=== PATIENT | female | born 1970 | race Two or more races ===

== ENCOUNTER 2024-04-10 15:48 | Outpatient (REF) | payer OTHER, SELFPAY ==
[2024-04-10 18:30] LABS: Erythrocyte Sedimentation Rate 16 MM/HR (0-20)
== END 2024-04-10 15:49 | disposition home or self-care (01) ==
LOC: HO.LAB 15:48
PROVIDERS: PCP Internal Medicine; Visit Provider Registered Nurse
DX: G44.209 Tension-type headache, unspecified, not intractable (principal)
CPT/HCPCS: 36415; 85652; 86140

== ENCOUNTER 2024-12-27 07:46 | Outpatient (REF) | payer OTHER, SELFPAY ==
--- OUTSIDE RECORDS SUMMARY | 2024-12-27 07:48 | XMS_ITS | Data Portability ---
Author Organization [place] - [facility], Allergy Address [address] [place] [id number] Assessment Encounter Date Assessment Date Assessment LastModified by Organization Details LastModified Time 04/17/2024 04/17/2024 54 year-old female with seasonal allergies presents for evaluation of ear pressure and left sided tinnitus. Otologic exam demonstrates TMs are intact with moderate retraction. No effusion was appreciated today. Audiogram today demonstrates normal hearing bilaterally with moderate type C tympanometry in left ear. Discussed switching from Loratadine to Claritin-D for 2 weeks and switching from Flonase to Afrin for 3 days. Recommend continuing her daily allergy regimen as prescribed after. She was prescribed Amoxicillin by her primary care provider for sinus congestion and will continue this regimen. Reviewed masking techniques, limiting caffeine and salt, and wearing hearing protection in loud environments for tinnitus management and prevention. As her symptoms are improving, the patient agrees to observation. She will follow up as needed if her symptoms persist longer than 3 months or worsen. Will consider tinnitus retraining therapy if symptom becomes bothersome. [email or web address] Not available 04/17/2024 12:33:11 Plan of Treatment Reminders Order Date Submit Date Provider Last Modified By Organization Details Last Modified Time Details Appointments None record ed. Lab None record ed. Referral None record ed. Procedures None record ed. Surgeries None record ed. Imaging None record ed. Medication Orders None record ed. Patient TargetsNo targets recorded. Patient InstructionsNo instructions recorded. Reason for Referral None Reported. Results Created Date Observation Date Name Description Value Unit Range Abnormal Flag Note LastModifiedBy Organization Detail LastModifiedTime 04/18/20 24 audio gram No observ ation record ed. [email or web address] Not Available 2023 10:07:39 Result Notes None recorded. Problems Name Problem SNOMED Code Status Onset Date Resolution Date Notes Provider Name and Address Organization Details Recorded Time Abnormal auditory perception 65950927 Active 2023 Merary sherman [facility] 11:10:52 Bilateral disorder of Eustachian tubes 2918240228427 107 Active 2023 JOY DOWLING PA-C [address] [place] [address], [phone], [facility] 12:31:15 Tinnitus of left ear 9811954028519 Active 2023 JOY DOWLING PA-C [address] [place] [address], [phone], [facility] 12:31:24 Problem Notes None recorded. Procedures Surgical History Date Name Laterality Status Provider Name and Address Organization Details Recorded Time 04/17/2024 Comp Audio with Tymps - 86878 & 14754 completed Merary Heredia [place] [facility] 04/17/2024 11:10:39 Imaging Results None recorded. Procedure Notes None recorded. Medical Equipment None Reported. Vitals Date Recorded Body height Body mass index (BMI) Body weight Provider Name and Address Organization Details Last Updated DateTime 04/17/2024 149.86 cm 37 kg/m2 11093.4 g Vince Sanchez [facility] 04/17/2024 11:16:54 Social History None recorded. Functional Status None recorded. Mental Status None recorded. Family History Nothing Reported. Medical History No medical history recorded. Gynecological HistoryNo gynecological history recorded. Obstetrics History GPAL:G 0 P 0 0 0 0 Past Encounters Encounter ID Performer Location Encounter Start Date Encounter Closed Date Diagnosis/Indication Diagnosis SNOMED-CT Code Diagnosis ICD10 Code Diagnosis Note [id number] ANA CALI PA-C [facility] [address] [place] [address] 04/17/2024 10:38:52 04/17/2024 12:43:08 Abnormal auditory perception 54391456 H93.299 Audiologic al evaluation results: Right ear: Normal hearing with excellent word recognitio n. Left ear: Normal hearing with excellent word recognitio n. Tympanomet ry: Right Ear:Type A Left Ear:Type C Bilateral disorder of Eustachian tubes 0712578083 687091 H69.93 Tinnitus of left ear 061 [id number] 106 H93.12 Health Concerns Section Related Observation LastModified by Organization Detai ls LastModified Time None Recorded Concern Status LastModified by Organization Details LastModified Time None Recorded Advance Directives Directive None Recorded Payers Insurance Date Sequence Insurance Name Policy Number Policy Perez Covered Member ID Perez Member ID Guarantor Name 05/02/2024 1 [facility] (MEDICAID HMO) JIMMY Sotelo [id number] Hattie Sotelo Notes Date Note Type Note Provider Name and Address Organization Details Recorded Time 04/17/2024 text/html 54 year-old noe reyna with seasonal allergies presents for ear pressure, left worse than right. Reports bilateral ear pressure started in September during a sinus infection. At that time she experienced high-pitched tinnitus and noise that sounded like the ocean. This resolved acutely, and she now hears occasional low-pitched ringing in left ear. In November, she reports an episode of worse left ear pressure a couple days after plane ride, felt like ice around her ear and that she might pass out. Resolved next day. Occasional throbbing otalgia. Denies otorrhea, changes to hearing, or room-spinning dizziness. History of childhood ear infections. No prior ear surgeries. No history of loud noise exposure. Qtip use. She uses Loratadine and Flonase daily. Uses does saline rinses every other day. Started amoxicillin yesterday for sinus infection. She is masking her occasional tinnitus with noise machine at night. She wears hearing protection as needed. Denies caffeine or high-salt diet. EUGENE PERSAUD MD [address] [place] [address], [phone], [place] - [facility] 04/17/2024 16:34:44 OBGyn Episode No OBEpisode recorded.
== END 2024-12-27 07:47 | disposition home or self-care (01) ==
LOC: HO.MRI 07:46
PROVIDERS: Visit Provider Registered Nurse
DX: Z13.89 Encounter for screening for other disorder (principal)

== ENCOUNTER → 2025-01-04 07:10 | Outpatient (BNV) | payer OTHER, SELFPAY | PROVIDERS: PCP Internal Medicine; Visit Provider Radiology Diagnostic Radiology | DX: M99.61 Osseous and subluxation stenosis of intervertebral foramina of cervical region (principal); D18.09 Hemangioma of other sites | CPT/HCPCS: 72141 ==

== ENCOUNTER 2025-01-04 07:13 | Outpatient (REF) | payer OTHER, SELFPAY ==
--- NOTE | ~2025-01-04 | MR_ITS ---
EXAMINATION: MR CERVICAL SPINE WITHOUT CONTRAST CLINICAL INFORMATION: Cervical disc disease. COMPARISON: None available. TECHNIQUE: MRI of the cervical spine was obtained using routine sequences without contrast. FINDINGS: Craniocervical junction is intact. No bone marrow STIR signal abnormality. There is a focal, less than 1 cm hyperintense T2 STIR slightly intrinsic hyperintense T1 bone lesion at the left vertebral body of C7. There is reverse curvature apex at C5. There is a grade retrolisthesis C5-6. There is a grade 1 anterolisthesis C4-5 and C6-7 levels. The cervical spinal cord signal is normal. C2-3: No disc herniation. No cord compression. No neuroforamina stenosis. C3-4: No disc herniation. No cord compression. No neuroforamina stenosis. C4-5: Broad-based disc osteophyte compresses formation. No cord compression. Left neuroforamina narrowing on a degenerative basis. C5-6: Broad-based disc osteophyte complex formation abutting the cord. No cord compression. Bilateral neuroforamina narrowing on a degenerative basis affecting mostly the left side C6-7: Broad-based disc osteophyte complex formation. No cord compression. No neuroforamina stenosis. C7-T1: No disc herniation. No neuroforamina stenosis. No prevertebral compartment hematoma, mass or fluid collection. Flow-void signal within the main vessels is normal. Codominant vertebral arteries. There is normal position of the cerebellar tonsils. MR/MR cervical spine wo con IMPRESSION: Reverse curvature apex at C5 with a mild [place] deformity. Multilevel cervical spondylosis resulting in grade 1 retrolisthesis C5-6 without cord compression, cord edema and or myelopathy. Left neuroforamina narrowing C4-5 and bilateral neuroforamina narrowing C5-6 on a degenerative basis. Intraosseous hemangioma, C7. Electronically signed by: Aroldo Bledsoe MD 01/04/2025 08:01 AM EDT
== END 2025-01-04 07:14 | disposition home or self-care (01) ==
LOC: HO.MRI 07:13
PROVIDERS: PCP Internal Medicine; Visit Provider Registered Nurse
DX: M50.90 Cervical disc disorder, unspecified, unspecified cervical region (principal)
CPT/HCPCS: 72141

== ENCOUNTER 2025-03-06 13:08 | Outpatient (AMB) | payer OTHER, SELFPAY ==
--- NOTE | 2025-03-06 13:21 | A.OFFVIS_ITS ---
Intake Visit Reasons: 3m Cerv Allergies codeine Allergy (Unknown, Verified 03/06/25 13:28) Unknown Medication List - Last Reconciled 03/06/25 by Yesenia Wilson CNP famotidine 20 mg PO BID loratadine 10 mg PO DAILY omeprazole 40 mg PO ONCE simvastatin 10 mg PO BEDTIME HPI Comments Details: She was doing okay. Headaches were okay. When she wore her hair pulled back tight she got some off balance feeling like she was being pulled backward. No falls. She was still having some neck pain and stiffness. She was waking with numbness and tingling down left arm into fingers a few times a week. She had some weakness to left hand. Was having some tightness to back of head, especially if she wore her hair up. Some dizziness and feeling off balance if she got up too fast. Neck pain. Waking up some numbness and tingling down left arm into fingers, also happens after driving for period of time. She stopped taking cyclobenzaprine as it made her feel nauseous. Saw ENT and was treated for sinus infection with amoxicillin. She was also advised to take Afrin x3 days and Claritin D x2 weeks which helped with congest ion. Headaches subsided after this so she stopped taking amitriptyline. Her mother passed in 01/2024. Previously, headaches occurred often with neck pain after sleeping in uncomfortable position. Chronic neck pain and stiffness, occasional numbness/tingling down LUE. Dizziness at times if she changes positions quickly. Hx of degenerative cervical disc disease. In 2019, she was waking with headache daily. Some sinus problems in the past. [facility] Medical History (Updated 03/06/25 @ 13:24 by Yesenia Wilson CNP) Cervical disc disease Tension headache Review of Systems Const Denies chills, Denies daytime sleepiness, Reports difficulty sleeping, Denies fatigue, Denies fever(s), Denies frequent falls, Reports headache(s), Denies increased appetite, Denies poor appetite, Denies snoring, Denies weakness, Denies weight gain and Denies weight loss Eyes Denies loss of vision ENT Denies vertigo, Reports dizziness, Reports headache(s) and Reports neck pain Card Denies chest pain at rest, Denies chest pain with activity, Denies syncope, Denies leg edema, Denies palpitations, Denies dyspnea and Denies dyspnea on exertion Resp Denies cough, Denies dyspnea, Denies dyspnea on exertion and Denies snoring GI Denies abdominal pain, Denies constipation, Denies heartburn, Denies diarrhea and Denies nausea Denies urinary frequency, Denies urinary incontinence and Denies urinary urgency Musc Denies abnormal gait, Denies back pain, Denies myalgias, Denies arthralgias, Reports neck pain, Reports numbness and Reports tingling Neuro Denies abnormal gait, Denies vertigo, Reports dizziness, Denies syncope, Denies frequent falls, Reports headache(s), Denies lack of coordination, Denies loss of vision, Denies memory loss, Reports numbness, Denies Other visual disturbances, Denies restless legs, Denies seizure-like activity, Reports tingling, Denies paresthesias, Denies tremor(s) and Denies weakness Psych Denies anxiety, Denies depression, Denies auditory hallucinations, Denies memory loss and Denies visual hallucinations Endo Denies fatigue and Denies palpitations Physical Exam Const Other: General Appearance:? normal, in no acute distress. Heart:? S1, S2 normal, no murmurs. Lungs:? clear anteriorly and posteriorly. Musculoskeletal:? normal. Extremities:? no edema. Psych:? alert, oriented, cognitive function intact, cooperative with exam. Neuro Other: Abnormal Neurological Findings:?Mild generalized weakness LUE. Tense paraspinal muscles Mental Status: alert and oriented X 3. Normal attention, orientation, memory, and affect. Cranial Nerves: Pupils are equal, round, and reactive to light. External ocular muscles are intact. Visual perez are full, no ptosis. Face is symmetrical, no facial weakness or droop. Facial sensations are normal. Tongue protrudes in midline. Palate elevates symmetrically. Shoulder shrugging is normal Motor Examination: As above, otherwise normal muscle tone, bulk and strength. No atrophy or fasciculations. No drift of the extended upper extremities. DTR 2+. Plantars are flexor. Sensory Exam: Normal light touch, temperature, pinprick, vibration, and joint- position sensations. Rhomberg sign is absent. Coordination: No ataxia. No titubation. Epledx-wd-fckx, dtgl-wlss-ifoh test, and rapid alternating movements were normal. Gait Exam: Within normal limits. Cerebellar Signs: Ezrekf-xq-vfad and sbgl-zr-qmoa is normal. No dysdiadochokinesia. Extrapyramidal System: No tremor, rigidity with normal facial expressions. No bradykinesia. No bradyphrenia. Normal arm swing and posture. No propulsion or retropulsion. Speech: Normal. No dysphasia or dysarthria. Results Reviewed Results Reviewed: [address] [address] Magnetic Resonance Report Signed Patient: Hattie Sotelo MR#: [id number] : 1970 Acct:[id number] Age/Sex: 54 / F ADM Date: 01/04/25 Loc: HO.MRI Attending Dr: Yesenia Wilson CNP Ordering Physician: Yesenia Wilson CNP Date of Service: 01/04/25 Procedure(s): MR cervical spine wo con Accession Number(s): [id number] cc: Yesenia Wilson CNP; Norah Vega MD~ EXAMINATION: MR CERVICAL SPINE WITHOUT CONTRAST CLINICAL INFORMATION: Cervical disc disease. COMPARISON: None available. TECHNIQUE: MRI of the cervical spine was obtained using routine sequences without contrast. FINDINGS: Craniocervical junction is intact. No bone marrow STIR signal abnormality. There is a focal, less than 1 cm hyperintense T2 STIR slightly intrinsic hyperintense T1 bone lesion at the left vertebral body of C7. There is reverse curvature apex at C5. There is a grade retrolisthesis C5-6. There is a grade 1 anterolisthesis C4-5 and C6-7 levels. The cervical spinal cord signal is normal. C2-3: No disc herniation. No cord compression. No neuroforamina stenosis. C3-4: No disc herniation. No cord compression. No neuroforamina stenosis. C4-5: Broad-based disc osteophyte compresses formation. No cord compression. Left neuroforamina narrowing on a degenerative basis. C5-6: Broad-based disc osteophyte complex formation abutting the cord. No cord compression. Bilateral neuroforamina narrowing on a degenerative basis affecting mostly the left side C6-7: Broad-based disc osteophyte complex formation. No cord compression. No neuroforamina stenosis. C7-T1: No disc herniation. No neuroforamina stenosis. No prevertebral compartment hematoma, mass or fluid collection. Flow-void signal within the main vessels is normal. Codominant vertebral arteries. There is normal position of the cerebellar tonsils. MR/MR cervical spine wo con IMPRESSION: Reverse curvature apex at C5 with a mild [place] deformity. Multilevel cervical spondylosis resulting in grade 1 retrolisthesis C5-6 without cord compression, cord edema and or myelopathy. Left neuroforamina narrowing C4-5 and bilateral neuroforamina narrowing C5-6 on a degenerative basis. Intraosseous hemangioma, C7. Electronically signed by: Aroldo Bledsoe MD 01/04/2025 08:01 AM EDT RP MRI C-spine 2024: C5-6 disc disease Assessment & Plan Assessment & Plan (1) Tension headache: Code(s): G44.209 - Tension-type headache, unspecified, not intractable Category: Medical (2) Cervical disc disease: Code(s): M50.90 - Cervical disc disorder, unspecified, unspecified cervical region Category: Medical Plan: MRI results reviewed. Start meloxicam, use/side effects reviewed. Plan Meds tried: cyclobenzaprine (drowsy), amitriptyline Medications: New meloxicam 15 mg PO DAILY 30 tabs 2RF 30 days Coding Level of Care Code Est Pt Level 4 (59826) Diagnoses Tension headache G44.209 Cervical disc disease M50.90
--- OUTSIDE RECORDS SUMMARY | 2025-03-06 14:02 | XMS_ITS | Clinical Summary ---
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 Role Phone Norah Vega MD Primary Care Provider Allergies Active Allergy Reactions Criticality Noted Date Comments Bismuth Subcit A-Sfbqclsld-Svi 10/17/2023 Pylera [bis Lyfnrj-kdhrxrlc-vsqmbek c] Other Reaction(s): Rash/Dermatitis Codeine Hallucinations 09/30/2005 Guaifenesin Hallucinations 09/30/2005 Robitussin House Dust 11/06/2016 Other 11/06/2016 Seasonal Wheezing , sob , chest congestion , cough Medications amitriptyline (ELAVIL) 10 mg tablet 4 Active cyclobenzaprine (FLEXERIL) 5 mg tablet 4 Active albuterol HFA (PROAIR HFA ; PROVENTIL HFA ; VENTOLIN HFA) 90 mcg/actuation inhalerIndicatio ns:Mild intermittent asthma, unspecified whether complicated Inhale 1-2 puffs by mouth every 4 (four) hours if needed for wheezing or shortness of breath. 6.7 g 5 Active loratadine (CLARITIN) 10 mg tablet Take 1 tablet (10 mg total) by mouth 1 (one) time each day. 90 tablet 3 5 Active fluticasone propionate (FLONASE) 50 mcg/actuation nasal spray Shake gently. Before first use, prime pump. After use, clean tip and replace cap.2 Sprays by Nasal route daily. 16 g 3 5 Active omeprazole (PriLOSEC) [address] capsule Take 1 capsule (40 mg total) by mouth 1 (one) time each day. DO NOT CRUSH OR CHEW 90 each 3 5 01/29/20 26 Active simvastatin (ZOCOR) 10 mg tablet Take 1 tablet (10 mg total) by mouth at bedtime. 90 each 5 05/16/20 25 Active atorvastatin (Lipitor) 10 mg tablet Take 1 tablet (10 mg total) by mouth at bedtime. 90 each 1 5 02/16/20 25 Discontin ued(Side effects) Active Problems Problem Noted Date Diagnosed Date GERD (gastroesophageal reflux disease) 5 Asthma 06/07/2024 Overview (06/07/2024): Hx in childhood. No inhaler x years Varicose veins of both lower extremities with pa in 04/23/2024 H. pylori infection 10/07/2023 Migraine 02/26/2021 Overview (06/07/2024): Dr. Robin Cervical spondylosis with radiculopathy 03/07/20 20 Severe obesity (BMI 35.0-39. 9) with comorbidity (CMS/HCC V24, CMS/HCC V28) 03/07/2020 Fibroid uterus 04/17/2019 Overview (06/07/2024): 04/16/2019 Uterus: 9.4 x 4.4 x 6.7 cm heterogeneous in texture with 2 measured fibroids: 2.2 x 2.4 x 1.9 cm calcified intramural fibroid left of midline. 1.6 x 1.5 x 1.8 cm posterior midline intramural fibroid Mixed hyperlipidemia 06/07/2014 Hemorrhage of gastrointestinal tract 09/11/2009 Overview (06/07/2024): Chronic small volume LGI bleeding associated with constipation; negative colonoscopy 09/11/2009, no colon cancer screening needed for 10 years. IMO update Allergic rhinitis 08/24/2006 Encounters Date Type Department Care Team Description 02/23/2025 9:58 AM EDT - 02/23/2025 11:59 PM EDT Hospital Encounter Radiology Department - [address] [phone] Encounter for screening mammogram for breast cancer Discharge Disposition: Home or Self Care 2025 Telephone Adult Medicine [address] [phone] Celeste Heath PA 01/28/2025 2:00 PM EDT Office Visit Adult Medicine [address] [phone] Celeste Heath PA Mixed hyperlipidemia (Primary Dx); Varicose veins of both lower extremities with pain; Severe obesity (BMI 35.0-39.9) with comorbidity (CMS/HCC V24, CMS/HCC V28) 01/23/2025 10:00 AM EDT Office Visit Vascular Surgery - [place] [address] [place] [phone] Liss Lazo MD Varicose veins with pain (Primary Dx) 12/28/2024 8:07 AM EDT Anesthesia Event [facility] Endoscopy [address] [place] [phone] Pepito Browne DO 12/28/2024 7:05 AM EDT - 12/28/2024 11:59 PM EDT Hospital Encounter [facility] Endoscopy [address] [place] [phone] Tommy Bolaños DO Barnes, Tyanna R, CRNA Chronic gastroesophageal reflux disease; Gastroesophageal reflux disease without esophagitis Discharge Disposition: Home or Self Care 12/25/2024 9:15 AM EDT Ancillary Procedure [facility] [address] [place] [phone] Varicose veins with pain; Varicose veins of leg with pain, bilateral 12/20/2024 Telephone Adult Medicine [address] [phone] Norah Vega MD medication questions 12/14/2024 8:15 AM EDT Office Visit Adult Medicine [address] [phone] Norah Vega MD Mixed hyperlipidemia (Primary Dx); Moderate persistent asthma without complication; Allergic rhinitis, unspecified seasonality, unspecified trigger; Gastroesophageal reflux disease without esophagitis; Severe obesity (BMI 35.0-39.9) with comorbidity (CMS/HCC V24, CMS/HCC V28) from Last 3 Months Immunizations Name Administration Dates Next Due Hepatitis B (Hodnptr-L-Cfzhp , Recombivax HB-Adult) 19yo and older 03/17/2001 Td Tetanus diptheria (Tdvax) 7yo and older 07/06 Tdap Tetanus diptheria acell ular pertussis (Boostrix; Adacel) 7yo and older 11/17/2024,07/31/2007 Zoster recombinant (Shingrix) 19yo and older 09/2024,09/11/2024 Surgical History Surgery Date Site/Laterality Comments TUBAL LIGATION COLONOSCOPY 09/11/2009 Normal COLONOSCOPY 01/2024 Medical History Medical History Date Comments Allergic rhinitis 08/24/2006 Asthma 06/07/2024 Hx in childhood. No inhaler x years H. pylori infection 10/07/2023 Hemorrhage of gastrointestinal tract 09/11/2009 Chronic small volume LGI bleeding associated with constipation; negative colonoscopy 09/11/2009, no colon cancer screening needed for 10 years. IMO update Migraine 02/26/2021 Dr. Robin Mixed hyperlipidemia 06/07/2014 Severe obesity (BMI 35.0-39. 9) with comorbidity (CMS/HCC V24, CMS/[facility] V28) 03/07/2020 GERD (gastroesophageal reflux disease) 5 Depression Family History Medical History Relation Name Comments Colon cancer Aunt 1 Colon cancer Aunt 2 paternal aunt d ied in her 40s Bipolar disorder Brother ADHD No Known Problems Father Prostate cancer Maternal Grandfather in MVA ? age Diabetes Maternal Grandmother Hypertension Maternal Grandmother pancrae tic ca; also at age 74 Hypertension Mother diabetes, chol, HIV. head and neck cancer Melanoma Mother Other: Other Paternal Grandfather in his 70s, ? cause of Diabetes Paternal Grandmother in her 70s Other: Other Sister 1 uterine ca age 17 with false ; 1/2 sis paternal Bipolar disorder Sister 2 ADHD Prostate cancer Uncle 1 in bicy cling accident; maternal uncle Prostate cancer Uncle 2 paternal unc le Breast cancer Neg Hx Relation Name Status Comments Aunt 1 Aunt 2 Brother Father Alive Maternal Grandfather Maternal Grandmother Mother Alive Paternal Grandfather Paternal Grandmother Sister 1 Sister 2 Alive Uncle 1 Uncle 2 Social History Tobacco Use Types Packs/Day Years Used Date Smoking Tobacco: Never Smokeless Tobacco: Never Tobacco Cessation:Counseling Given: Not Answered Alcohol Use Standard Drinks/Week Comments No 0 (1 standard drink = 0.6 oz pur e alcohol) Housing Instability Answer Date Recorde d Are you worried that in the next 2 months you may not have stable housing? No 10/15/2024 Food Access & Nutrition Answer Date Rec orded Do you have access to a vari ety of food including fruits and vegetables? Yes 10/15/2024 Access to Healthcare Answer Date Record ed Within the last 3 months, ho w many times did you visit the emergency department for your medical care? 0 10/15/2024 Health Literacy Answer Date Recorded How often do you need to hav e someone help you when you read instructions, pamphlets, or other written material from your doctor or pharmacy? Never 10/15/2024 Caregiver: How often do you need to have someone help you when you read instructions, pamphlets, or other written material from your doctor or pharmacy? Not on file 10/15/2024 Financial Risk Answer Date Recorded How hard is it for you to pa y for the very basics like food, housing, medical care, and air conditioning / heating? Not very hard 10/15/2024 Transportation Answer Date Recorded Has the lack of transportati on kept you from meetings, work, or from getting things needed for daily living? No Has the lack of transportati on kept you from medical appointments or from getting medications? No 10/15/2024 Social Isolation Answer Date Recorded How often do you feel lonely or isolated from th ose around you? Never 10/15/2024 Food Risk Answer Date Recorded Within the past 12 months we worried whether our food would run out before we got money to buy more. Never true 10/15/2024 Within the past 12 months th e food we bought just didn't last and we didn't have money to get more. Never true 10/15/2024 Dependent Care Answer Date Recorded Do you need help finding or paying for care for your loved ones. For example, child adolescent psychiatrist or elderly care for an older adult? No 10/15/2024 Education Answer Date Recorded Do you think completing more education or training, like finishing a GED, going to college, or learning a trade, would be helpful for you? N/A 10/15/2024 Employment and Income Answer Date Recor ded During the last four weeks, have you been actively looking for work? No 10/15/2024 Living Situation Answer Date Recorded What is your living situation? 0 10/15/2024 Interpersonal Safety Answer Date Record ed Physical Abuse 12/28/2024 Verbal Abuse 12/28/2024 Comments No Sex and Gender Information Value Date Recorded Sex Assigned at Female 06/13/2024 6:43 AM EST Legal Sex Female 12:18 AM EST Gender Identity Female 06/13/2024 6:43 AM EST Sexual Orientation Straight 06/13/2024 6: 43 AM EST Obstetrics History Para Term AB IAB SAB Ectopic Multiple Livin g Live Births 2 2 2 2 Date Outcome GA Total Labor Labor/2nd/3rd Weight Sex Type Anes PTL Demetria A1 A5 Name Clin Term Term Last Filed Vital Signs Vital Sign Reading Time Taken Comments Blood Pressure 117/82 01/28/2025 1:55 PM EDT Pulse 91 01/28/2025 1:55 PM EDT Temperature 36 C (96.8 F) 01/28/2025 1:55 PM EDT Respiratory Rate 16 01/28/2025 1:55 PM EDT Oxygen Saturation 100% 12/28/2024 8:39 AM EDT Inhaled Oxygen Concentration - - Weight 83.5 kg (184 lb) 01/28/2025 1:55 PM EDT Height 149.9 cm (4' 11 ) 01/28/2025 1:55 PM EDT Body Mass Index 37.16 01/28/2025 1:55 PM EDT Plan of Treatment Upcoming Encounters Date Type Department Care Team (Late st Contact Info) Description 03/21/2025 10:30 AM EDT Appointment Radiology Department [address] [phone] 03/21/2025 10:55 AM EDT Appointment Radiology Department - [address] [phone] 03/27/2025 10:40 AM EDT Office Visit Gastroenterology - [place] [address] [facility] [address] [place] [phone] Altagracia Son, [place] 175 [facility] [address] [place] [address] 01/29/2026 10:00 AM EDT Office Visit Vascular Surgery - [place] [address] [facility] [address] [place] [phone] Liss Lazo MD 300 [facility] [address] [place] [address] Health Maintenance Due Date Last Done Comments Pneumococcal Vaccine: 50+ Years (1 of 2 - PCV) 02/10/1991 Hepatitis B Vaccines (2 of 3 - 19+ 3-dose series) 04/14/2001 03/17/2001 HIV Screening 06/26/2022 COVID-19 Vaccine ( season) 2024 12/16/2020, 11/18/2020 Influenza Vaccine (#1) 2025 Social Influencers of Health Screening 10/15/2025 10/15/2024 Cervical Cancer Screening: HPV 01/02/2026 01/02/2021 Breast Cancer Screening 02/23/2027 02/24/20 25, 2024, 2024, Additional history exists Cholesterol Screening (Lipid Panel) 02/12/2030 02/12/2025, 12/14/2024, 04/24/2024, Additional history exists Colorectal Cancer Screening: Colonoscopy 01/26/2034 01/27/2024 DTaP,Tdap,and Td Vaccines (4 - Td or Tdap) 11/17/2034 11/17/2024, 07/06/2018, 07/31/2007 Hepatitis C Screening Completed 03/15/2001 Depression Screening Completed 10/15/2024, 04/23/20 24 Zoster Vaccines Completed 11/17/2024, 09/11/2024 HIB Vaccines Aged Out No longer eligi ble based on patient's age to complete this topic HPV Vaccines Aged Out No longer eligi ble based on patient's age to complete this topic Hepatitis A Vaccines Aged Out No long er eligible based on patient's age to complete this topic IPV Vaccines Aged Out No longer eligi ble based on patient's age to complete this topic MMR Vaccines Aged Out No longer eligi ble based on patient's age to complete this topic Meningococcal ACWY Vaccine Aged Out N o longer eligible based on patient's age to complete this topic Meningococcal B Vaccine Aged Out No l onger eligible based on patient's age to complete this topic RSV Immunization Patients Under 20 months Aged Out No longer eligible based on patient's age to complete this topic Varicella Vaccines Aged Out No longer eligible based on patient's age to complete this topic Procedures Procedure Name Priority Date/Time Associated Diagnosis Comments MG MAMMO DIGITAL SCREENING W TREMAINE BILAT Routine 02/23/2025 10:12 AM EDT Encounter for screening mammogram for breast cancer LIPID PANEL WITH REFLEX TO DIRECT LDL Routine 02/12/2025 9:31 AM EDT Mixed hyperlipidemia ASPARTATE AMINOTRANSFERASE Routine 02/12/2025 9:31 AM EDT Mixed hyperlipidemia ALANINE AMINOTRANSFERASE Routine 02/12/2025 9:31 AM EDT Mixed hyperlipidemia EGD Routine 12/28/2024 8:18 AM EDT Chronic gastroesophageal reflux disease Gastroesophageal reflux disease without esophagitis TISSUE EXAM Routine 12/28/2024 8:15 AM EDT Chronic gastroesophageal reflux disease Gastroesophageal reflux disease without esophagitis VAS US DUPLEX LOWER EXT VENOUS INSUFFICIENCY BILATERAL Routine 12/25/2024 9:34 AM EDT Varicose veins with pain Varicose veins of leg with pain, bilateral LIPID PANEL WITH REFLEX TO DIRECT LDL Routine 12/14/2024 8:32 AM EDT Mixed hyperlipidemia HM DEPRESSION SCREENING Routine 04/23/2024 COLONOSCOPY Routine 01/27/2024 HPV Routine 01/02/2021 HEPATITIS C SCREENING Routine 03/15/2001 from Last 3 Months or Most Recently Relevant to Health Maintenance Results * (ABNORMAL) MG Mammo Digital Screening w Tremaine bilat (02/23/2025 10:12 AM EDT) Anatomical Region Laterality Modality Breast Bilateral Mammography 02/26/2025 12:3 0 PM EDT Impressions 02/26/2025 12:43 PM EDT 1. Left: No mammographic evidence of malignancy 2. Right: Indeterminate upper outer middle depth focal asymmetry possibly associated with calcifications 3. Scattered fibroglandular tissue BI-RADS CATEGORY: 0 - INCOMPLETE - NEED ADDITIONAL IMAGING EVALUATION RECOMMENDATION: Additional right breast imaging recommended. Right breast CC and MLO spot compression, full-field ML, targeted ultrasound. Consider CC and ML magnification views if needed Mammo Location: [facility], [address] [place] [address], [phone], . -------- FINAL REPORT -------- Dictated By: Ken Chen Dictated Date: 02/26/2025 12:30 ET Assigned Physician: Ken Chen Reviewed and Electronically Signed By: Ken Chen Signed Date: 02/26/2025 12:43 ET Workstation ID: [id number] Transcribed By: Self Edit Transcribed Date: 02/26/2025 12:30 ET Narrative 02/26/2025 12:43 PM EDT A BILATERAL DIGITAL 3D SCREENING MAMMOGRAPHY HISTORY: Routine screening. No family history of breast cancer. COMPARISON: Multiple priors dating back to 11/01/2020 Technique: Bilateral full field digital mammography (3D) was performed using standard CC and MLO projections CAD was used to evaluate this mammogram. FINDINGS: Right: Indeterminate upper outer middle depth focal asymmetry possibly associated with calcifications Left: No suspicious masses, groups of microcalcification or areas of architectural distortion identified. Stable typically benign parenchymal asymmetries. BREAST DENSITY: B - There are scattered areas of fibroglandular density. Procedure Note Ken Chen MD - 02/26/2025 A BILATERAL DIGITAL 3D SCREENING MAMMOGRAPHY HISTORY: Routine screening. No family history of breast cancer. COMPARISON: Multiple priors dating back to 11/01/2020 Technique: Bilateral full field digital mammography (3D) was performedusing standard CC and MLO projections CAD was used to evaluate this mammogram. FINDINGS: Right: Indeterminate upper outer middle depth focal asymmetry possibly associatedwith calcifications Left: No suspicious masses, groups of microcalcification or areas ofarchitectural distortion identified. Stable typically benign parenchymalasymmetries. BREAST DENSITY: B - There are scattered areas of fibroglandular density. IMPRESSION: 1. Left: No mammographic evidence of malignancy 2. Right: Indeterminate upper outer middle depth focal asymmetry possiblyassociated with calcifications 3. Scattered fibroglandular tissue BI-RADS CATEGORY: 0 - INCOMPLETE - NEED ADDITIONAL IMAGING EVALUATION RECOMMENDATION: Additional right breast imaging recommended. Right breast CC and MLO spotcompression, full-field ML, targeted ultrasound. Consider CC and MLmagnification views if needed Mammo Location: [facility], [address] [place] [address], [address], . -------- FINAL REPORT -------- Dictated By: Ken Chen Dictated Date: 02/26/2025 12:30 ET Assigned Physician: Ken Chen Reviewed and Electronically Signed By: Ken Chen Signed Date: 02/26/2025 12:43 ET Workstation ID: [id number] Transcribed By: Self Edit Transcribed Date: 02/26/2025 12:30 ET us Norah Vega MD IMG BI PROCEDURES Final Result * (ABNORMAL) Lipid panel with reflex to direct LDL (02/12/2025 9:31 AM EDT) Only the most recent of2 resultswithin the time period is included. Cholesterol 228(H) 0 - 200 mg/dL LAB CHEMISTRY METHOD 02/12/2025 1:56 PM EDT [facility] Triglycerides 123 0 - 150 mg/dL LAB CHEMISTRY METHOD 02/12/2025 1:56 PM EDT [facility] HDL 55 >=40 mg/dL LAB CHEMISTRY METHOD 02/12/2025 1:56 PM EDT [facility] LDL Calculated 148(H) 0 - 100 mg/dL LAB CHEMISTRY METHOD 02/12/2025 1:56 PM EDT [facility] VLDL Cholesterol Miky 24.6 mg/dL LAB CHEMISTRY METHOD 02/12/2025 1:56 PM EDT [facility] Non HDL Chol. (LDL+VLDL) 173(H) <145 mg/dL LAB CHEMISTRY METHOD 02/12/2025 1:56 PM EDT [facility] Chol/HDL Ratio 4.1 0.0 - 4.4 LAB CHEMISTRY METHOD 02/12/2025 1:56 PM EDT [facility] Blood Venous blood specimen / Unknown Venipuncture / Unknown 02/12/2025 9:31 AM EDT 02/12/2025 9:31 AM EDT us Norah Vega MD LAB BLOOD ORDERABLES Final Resul t Performing Organization Address City/[facility]/ZIP Co de Phone Number [facility] [address] [place] [address], [place] [phone] * Alanine aminotransferase (02/12/2025 9:31 AM EDT) ALT (SGPT) 31 10 - 60 unit/L LAB CHEMISTRY METHOD 02/12/2025 1:56 PM EDT [facility] Blood Venous blood specimen / Unknown Venipuncture / Unknown 02/12/2025 9:31 AM EDT 02/12/2025 9:31 AM EDT us Norah Vega MD LAB BLOOD ORDERABLES Final Resul t [facility] [address] [place] [address], [place] [phone] * Aspartate aminotransferase (02/12/2025 9:31 AM EDT) AST (SGOT) 25 10 - 42 unit/L LAB CHEMISTRY METHOD 02/12/2025 1:56 PM EDT [facility] Blood Venous blood specimen / Unknown Venipuncture / Unknown 02/12/2025 9:31 AM EDT 02/12/2025 9:31 AM EDT us Norah Vega MD LAB BLOOD ORDERABLES Final Resul t [facility] [address] [place] [address], * E[place] [facility]COPY (12/28/2024 8:18 AM EDT) Anatomical Region Laterality Modality Endoscopy 12/28/2024 8:09 AM EDT Impressions 12/28/2024 8:18 AM EDT - Normal esophagus. Biopsied. - Normal stomach. Biopsied. - Normal examined duodenum. Recommendation: - Discharge patient to home. - Resume previous diet. - Continue present medications. - Await pathology results. Narrative 12/28/2024 8:18 AM EDT [facility] GI Patient Name: Hattie Horvath Procedure Date: 12/28/2024 8:09 AM Date of : 1970 Age: 54 Gender: Female Note Status: Finalized Attending MD: Tommy Bolaños DO, [id number] Procedure Date No Time: 12/28/2024 Procedure: Upper GI endoscopy Indications: Heartburn Providers: Tommy Bolaños DO Referring MD: Norah Vega MD Medicines: Monitored Anesthesia Care Complications: No immediate complications. Estimated blood loss: Minimal. Estimated Blood Loss: Estimated blood loss was minimal. Procedure: Pre-Anesthesia Assessment: - - Prior to the procedure, a History and Physical was performed, and patient medications and allergies were reviewed. The patient is competent. The risks and benefits of the procedure and the sedation options and risks were discussed with the patient. All questions were answered and informed consent was obtained. Patient identification and proposed procedure were verified by the physician, the nurse, the anesthesiologist, the labor employment associate and the technician automated equipment in the pre-procedure area in the endoscopy suite. Mental Status Examination: alert and oriented. Airway Examination: normal oropharyngeal airway and neck mobility. Respiratory Examination: clear to auscultation. CV Examination: normal. Prophylactic Antibiotics: The patient does not require prophylactic antibiotics. Prior Anticoagulants: The patient has taken no anticoagulant or antiplatelet agents. ASA Grade Assessment: II - A patient with severe systemic disease. After reviewing the risks and benefits, the patient was deemed in satisfactory condition to undergo the procedure. The anesthesia plan was to use monitored anesthesia care (MAC). Immediately prior to administration of medications, the patient was re-assessed for adequacy to receive sedatives. The heart rate, respiratory rate, oxygen saturations, blood pressure, adequacy of pulmonary ventilation, and response to care were monitored throughout the procedure. The physical status of the patient was re-assessed after the procedure. After obtaining informed consent, the endoscope was passed under direct vision. Throughout the procedure, the patient's blood pressure, pulse, and oxygen saturations were monitored continuously. The Olympus Gastroscope was introduced through the mouth, and advanced to the third part of duodenum. The upper GI endoscopy was accomplished without difficulty. The patient tolerated the procedure well. Findings: The esophagus was normal. Biopsies were taken with a cold forceps for histology. Estimated blood loss was minimal. The stomach was normal. Biopsies were taken with a cold forceps for histology. Estimated blood loss was minimal. The examined duodenum was normal. Procedure Code(s): --- Professional --- 62026, Esophagogastroduodenoscopy, flexible, transoral; with biopsy, single or multiple Diagnosis Code(s): --- Professional --- R12, Heartburn CPT copyright 2020 [employer]. All rights reserved. The codes documented in this report are preliminary and upon medical equipment technician review may be revised to meet current compliance requirements. TOMMY Bolaños DO 12/28/2024 8:17:53 AM This report has been signed electronically.Tommy Bolaños DO Number of Addenda: 0 Note Initiated On: 12/28/2024 8:09 AM Scope In: Scope Out: Endoscopy Department at [facility] - [address] [place] [phone] Procedure Note Tommy Bolaños DO - 12/28/2024 [facility] GI Patient Name: Hattie Horvath Procedure Date: 12/28/2024 8:09 AM Date of : 1970 Age: 54 Gender: Female Note Status: Finalized Attending MD: Tommy Bolaños DO, [id number] Procedure Date No Time: 12/28/2024 Procedure: Upper GI endoscopy Indications: Heartburn Providers: Tommy Bolaños DO Referring MD: Norah Vega MD Medicines: Monitored Anesthesia Care Complications: No immediate complications. Estimated blood loss: Minimal. Estimated Blood Loss: Estimated blood loss was minimal. Procedure: Pre-Anesthesia Assessment: - - Prior to the procedure, a History and Physicalwas performed, and patient medications and allergieswere reviewed. The patient is competent. The risks and benefits of the procedure and the sedation optionsand risks were discussed with the patient. Allquestions were answered and informed consent was obtained. Patient identification and proposed procedure were verified by the physician, the nurse, the anesthesiologist, the labor employment associate and thetechnician in the pre-procedure area in the endoscopy suite. Mental Status Examination: alert and oriented.Airway Examination: normal oropharyngeal airway and neck mobility. Respiratory Examination: clear to auscultation. CV Examination: normal. Prophylactic Antibiotics: The patient does not requireprophylactic antibiotics. Prior Anticoagulants: The patient has taken no anticoagulant or antiplatelet agents. ASA Grade Assessment: II - A patient with severesystemic disease. After reviewing the risks and benefits,the patient was deemed in satisfactory condition to undergo the procedure. The anesthesia plan was touse monitored anesthesia care (MAC). Immediately priorto administration of medications, the patient was re-assessed for adequacy to receive sedatives. The heart rate, respiratory rate, oxygen saturations, blood pressure, adequacy of pulmonary ventilation,and response to care were monitored throughout the procedure. The physical status of the patient was re-assessed after the procedure. After obtaining informed consent, the endoscope was passed under direct vision. Throughout theprocedure, the patient's blood pressure, pulse, and oxygen saturations were monitored continuously. TheOlympus Gastroscope was introduced through the mouth, and advanced to the third part of duodenum. The upperGI endoscopy was accomplished without difficulty. The patient tolerated the procedure well. Findings: The esophagus was normal. Biopsies were taken witha cold forceps for histology. Estimated blood losswas minimal. The stomach was normal. Biopsies were taken with a cold forceps for histology. Estimated blood losswas minimal. The examined duodenum was normal. Procedure Code(s): --- Professional --- 04442, Esophagogastroduodenoscopy, flexible, transoral; with biopsy, single or multiple Diagnosis Code(s): --- Professional --- R12, Heartburn CPT copyright 2020 [employer]. All rights reserved. The codes documented in this report are preliminary and upon medical equipment technician reviewmay be revised to meet current compliance requirements. TOMMY Bolaños DO 12/28/2024 8:17:53 AM This report has been signed electronically.Tommy Bolaños DO Number of Addenda: 0 Note Initiated On: 12/28/2024 8:09 AM Scope In: Scope Out: Endoscopy Department at [facility] - [address] [place] [phone] IMPRESSION: - Normal esophagus. Biopsied. - Normal stomach. Biopsied. - Normal examined duodenum. Recommendation: - Discharge patient to home. - Resume previous diet. - Continue present medications. - Await pathology results. Tommy Bolaños DO GI~PROCEDURE ORDERABLES Final Re sult * Tissue exam (12/28/2024 8:15 AM EDT) Final Diagnosis A. Gastric, Body, random biopsies: Gastric mucosa with mild chronic inactive gastritis. No Helicobacter pylori identified. Note: No Helicobacter was identified on routine stains. Because of chronic gastritis pattern, immunohistochemical stain for H. pylori was performed and is interpreted as negative, supporting the above diagnosis. Control stains appropriately. B. Esophagus, biopsies: Benign esophageal squamous mucosa with no specific pathologic change identified. 5 1:13 PM EDT [facility] Gross Description A. Gastric, Body, random biopsies: Labeled random gastric, bod . Received in formalin, are four irregular soft to rubbery, martinez-pink to red tissue fragments, approximately ranging from 0.35 cm to 0.6 cm in greatest diameters, which are wrapped in paper and submitted in toto in one cassette, four pieces, multiple levels. B. Esophagus, biopsies: Labeled esophagus . Received in formalin are four soft to rubbery, friable, white-pink to red tissue fragments, approximately measuring 0.1 cm and 0.7 cm in greatest diameters, which are wrapped in paper and submitted in toto in one cassette, four pieces, multiple levels. Please note: Small tissue fragments may not survive processing. hs/DG 1:13 PM EDT [facility] Disclaimer NOTE: The immunohistochemical tests and in situ hybridization tests were developed and their performance characteristics were determined by [facility]. They have not been cleared or approved by the U.S. Food and Drug Administration. The FDA has determined that such clearance or approval is not necessary. These tests are used for clinical purposes. They should not be regarded as investigational or for research. This laboratory is certified under the Clinical Laboratory Improvement Amendments of 1988 (CLIA) as qualified to perform high complexity clinical laboratory testing. (controls appropriate) Unless otherwise specified, all tissue is 10% NB formalin fixed and paraffin embedded. 1:13 PM EDT [facility] Tissue Esophageal structure / Unknown 12/28/2024 8:15 AM EDT 12/28/2024 9:51 AM EDT Tissue specimen (specimen) Esophageal structure / Unknown 12/28/2024 8:15 AM EDT 12/28/2024 9:51 AM EDT us Tommy Bolaños DO LAB PATHOLOGY ORDERABLES Final R esult [facility] [address] [place] [address], * Vascular US duplex lower extremity venous insufficiency bilateral (12/25/2024 9:34 AM EDT) Left GSK lora 0.47 cm CV VAS LAB Left GSDC lora 0.28 cm CV VAS LAB Left GSMT lora 0.21 cm CV VAS LAB Left GSPC lora 0.40 cm CV VAS LAB Left GSPT lora 0.52 cm CV VAS LAB Left SFJ Diameter 0.89 cm CV VAS LAB Left SSMC lora 0.23 cm CV VAS LAB Left SSPC lora 0.17 cm CV VAS LAB Right GSK lora 0.47 cm CV VAS LAB Right GSDC lora 0.28 cm CV VAS LAB Right GSMT lora 0.49 cm CV VAS LAB Right GSPC lora 0.43 cm CV VAS LAB Right GSPT lora 0.48 cm CV VAS LAB Right pop reflux 672 ms CV VAS LAB Right SFJ Diameter 0.94 cm CV VAS LAB Right SSMC lora 0.25 cm CV VAS LAB Right SSPC lora 0.27 cm CV VAS LAB Anatomical Region Laterality Modality Vascular, Abdomen Ultrasound Narrative 12/29/2024 1:47 PM EDT Right: 1. The right lower extremity veins are compressible and there is no evidence of DVT in the right lower extremity venous system. 2. The GSV has an SSV has no significant reflux. But there is a refluxing varicose vein branch from the right GSV noted in the right upper calf with clinically significant reflux of 4.1 seconds. 3. The right popliteal vein has mild reflux of 0.6 seconds. Left: 1. The left lower extremity veins are compressible and there is no evidence of DVT in the left lower extremity venous system. 2. The GSV and SSV has no significant reflux. Right Lower Venous No evidence of deep vein thrombosis in the common femoral, deep femoral, proximal femoral, mid femoral, distal femoral, popliteal, greater saphenous, small saphenous, posterior tibial and peroneal veins of the right leg. The vessels showed compressibility. Interrogation showed phasic and spontaneous Doppler signals. Right Venous Insufficiency Duplex The exam was performed with the patient in reverse Trendelenburg. Refluxing right greater saphenous branch: 0.20cm diameter upper calf= 4160ms Left Lower Venous No evidence of deep vein thrombosis in the common femoral, deep femoral, proximal femoral, mid femoral, distal femoral, popliteal, greater saphenous, small saphenous, posterior tibial and peroneal veins of the left leg. The vessels showed compressibility. Interrogation showed phasic and spontaneous Doppler signals. Left Venous Insufficiency Duplex The exam was performed with the patient in reverse trendelenburg. 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 During the study longitudinal and transverse views were obtained. Pulsed wave doppler was performed. Liss Lazo MD CV VASCULAR PROCEDURES Fi nal Result * Depression Screening (04/23/2024) [facility] Depression Screening Abstracted Result [facility] Provider HEALTH MAINTENANCE Final Result * Colonoscopy (01/27/2024) [facility] Colonoscopy No Interpretation , Abstracted Anatomical Region Laterality Modality Other Result [facility] Provider HEALTH MAINTENANCE Final Result * Cervical Cancer Screening: HPV (01/02/2021) [facility] Cervical Cancer Screening: HPV Negative, Abstracted Result [facility] Provider HEALTH MAINTENANCE Final Result * Hepatitis C Screening (03/15/2001) [facility] Hepatitis C Screening Abstracted Result [facility] Provider HEALTH MAINTENANCE Final Result from Last 3 Months or Most Recently Relevant to Health Maintenance Insurance [facility] 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
--- OUTSIDE RECORDS SUMMARY | 2025-03-06 14:02 | XMS_ITS ---
Author Name [facility] Organization Unknown Care Team Organization Name Specialty Phone Email Start Date End Da te [facility] Norah Vega Primary Care 05/25/2022 4
== END 2025-03-06 13:46 | disposition home or self-care (01) ==
LOC: HO.HSM 13:09
PROVIDERS: PCP Internal Medicine; Referring Provider Internal Medicine; Visit Provider Registered Nurse
DX: G44.209 Tension-type headache, unspecified, not intractable (principal); M50.90 Cervical disc disorder, unspecified, unspecified cervical region
CPT/HCPCS: 99214

== ENCOUNTER → 2025-03-06 13:08 | Outpatient (BNVA) | payer OTHER, SELFPAY | PROVIDERS: PCP Internal Medicine; Referring Provider Internal Medicine; Visit Provider Registered Nurse | DX: G44.209 Tension-type headache, unspecified, not intractable (principal); M50.90 Cervical disc disorder, unspecified, unspecified cervical region | CPT/HCPCS: 99212 ==

== ENCOUNTER 2025-06-06 12:06 | Outpatient (AMB) | payer OTHER, SELFPAY ==
--- NOTE | 2025-06-06 12:08 | MHC.OFFVIS ---
Intake Visit Reasons: Neck pain Allergies codeine Allergy (Unknown, Verified 06/06/25 12:10) Unknown Medication List - Last Reconciled 06/06/25 by Yesenia Wilson CNP famotidine 20 mg PO BID loratadine 10 mg PO DAILY meloxicam 15 mg PO DAILY 30 days omeprazole 40 mg PO ONCE simvastatin 10 mg PO BEDTIME HPI Comments Details: She was doing okay. She had some occasional headaches which she described as pressure-type to back of head with some off balance feeling, like she was being pulled backward. No falls. No significant neck pain or stiffness. She was most bothered by numbness and tingling down left arm into first 3 fingers when laying on her left side for more than 10 minutes. She could not sleep on her left side because of this. It has been going on for few months. Left hand may be a bit weaker. Previously, when she wore her hair pulled back tight, she got some off balance feeling like she was being pulled backward. She had some neck pain and stiffness. She was waking with numbness and tingling down left arm into fingers a few times a week. She had some weakness to left hand. Was having some tightness to back of head, especially if she wore her hair up. Some dizziness and feeling off balance if she got up too fast. Neck pain. Waking up some numbness and tingling down left arm into fingers, also happens after driving for period of time. She stopped taking cyclobenzaprine as it made her feel nauseous. Saw ENT and was treated for sinus infection with amoxicillin. She was also advised to take Afrin x3 days and Claritin D x2 weeks which helped with congestion. Headaches subsided after this so she stopped taking amitriptyline. Her mother passed in 01/2024. Previously, headaches occurred often with neck pain after sleeping in uncomfortable position. Chronic neck pain and stiffness, occasional numbness/tingling down LUE. Dizziness at times if she changes positions quickly. Hx of degenerative cervical disc disease. In 2019, she was waking with headache daily. Some sinus problems in the past. PENDING SALE TO [facility] Medical History (Updated 06/06/25 @ 12:21 by Yesenia Wilson CNP) Cervical disc disease Tension headache Review of Systems Const Denies chills, Denies daytime sleepiness, Reports difficulty sleeping, Denies fatigue, Denies fever(s), Denies frequent falls, Reports headache(s), Denies increased appetite, Denies poor appetite, Denies snoring, Denies weakness, Denies weight gain and Denies weight loss Eyes Denies loss of vision ENT Denies vertigo, Reports dizziness, Reports headache(s) and Reports neck pain Card Denies chest pain at rest, Denies chest pain with activity, Denies syncope, Denies leg edema, Denies palpitations, Denies dyspnea and Denies dyspnea on exertion Resp Denies cough, Denies dyspnea, Denies dyspnea on exertion and Denies snoring GI Denies abdominal pain, Denies constipation, Denies heartburn, Denies diarrhea and Denies nausea Denies urinary frequency, Denies urinary incontinence and Denies urinary urgency Musc Denies abnormal gait, Denies back pain, Denies myalgias, Denies arthralgias, Reports neck pain, Reports numbness and Reports tingling Neuro Denies abnormal gait, Denies vertigo, Reports dizziness, Denies syncope, Denies frequent falls, Reports headache(s), Denies lack of coordination, Denies loss of vision, Denies memory loss, Reports numbness, Denies Other visual disturbances, Denies restless legs, Denies seizure-like activity, Reports tingling, Denies paresthesias, Denies tremor(s) and Denies weakness Psych Denies anxiety, Denies depression, Denies auditory hallucinations, Denies memory loss and Denies visual hallucinations Endo Denies fatigue and Denies palpitations Physical Exam Const Other: General Appearance:? normal, in no acute distress. Heart:? S1, S2 normal, no murmurs. Lungs:? clear anteriorly and posteriorly. Musculoskeletal:? normal. Extremities:? no edema. Psych:? alert, oriented, cognitive function intact, cooperative with exam. 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 Normal attention, orientation, memory, and affect. Cranial Nerves: Pupils are equal, round, and reactive to light. External ocular muscles are intact. Visual perez are full, no ptosis. Face is symmetrical, no facial weakness or droop. Facial sensations are normal. Tongue protrudes in midline. Palate elevates symmetrically. Shoulder shrugging is normal Motor Examination: As above, otherwise normal muscle tone, bulk and strength. No atrophy or fasciculations. No drift of the extended upper extremities. DTR 2+. Plantars are flexor. Sensory Exam: Normal light touch, temperature, pinprick, vibration, and joint-position sensations. Rhomberg sign is absent. Coordination: No ataxia. No titubation. Gait Exam: Within normal limits. Cerebellar Signs: Ymbpyy-kk-udoo is okay. Extrapyramidal System: No tremor, rigidity with normal facial expressions. No bradykinesia. No bradyphrenia. Normal arm swing and posture. No propulsion or retropulsion. Speech: Normal. Results Reviewed Results Reviewed: [address] [address] Magnetic Resonance Report Signed Patient: Hattie Sotelo MR#: [id number] : 1970 Acct:[id number] Age/Sex: 54 / F ADM Date: 01/04/25 Loc: HO.MRI Attending Dr: Yesenia Wilson CNP Ordering Physician: Yesenia Wilson CNP Date of Service: 01/04/25 Procedure(s): MR cervical spine wo con Accession Number(s): [id number] cc: Yesenia Wilson CNP; Norah Vega MD~ EXAMINATION: MR CERVICAL SPINE WITHOUT CONTRAST CLINICAL INFORMATION: Cervical disc disease. COMPARISON: None available. TECHNIQUE: MRI of the cervical spine was obtained using routine sequences without contrast. FINDINGS: Craniocervical junction is intact. No bone marrow STIR signal abnormality. There is a focal, less than 1 cm hyperintense T2 STIR slightly intrinsic hyperintense T1 bone lesion at the left vertebral body of C7. There is reverse curvature apex at C5. There is a grade retrolisthesis C5-6. There is a grade 1 anterolisthesis C4-5 and C6-7 levels. The cervical spinal cord signal is normal. C2-3: No disc herniation. No cord compression. No neuroforamina stenosis. C3-4: No disc herniation. No cord compression. No neuroforamina stenosis. C4-5: Broad-based disc osteophyte compresses formation. No cord compression. Left neuroforamina narrowing on a degenerative basis. C5-6: Broad-based disc osteophyte complex formation abutting the cord. No cord compression. Bilateral neuroforamina narrowing on a degenerative basis affecting mostly the left side C6-7: Broad-based disc osteophyte complex formation. No cord compression. No neuroforamina stenosis. C7-T1: No disc herniation. No neuroforamina stenosis. No prevertebral compartment hematoma, mass or fluid collection. Flow-void signal within the main vessels is normal. Codominant vertebral arteries. There is normal position of the cerebellar tonsils. MR/MR cervical spine wo con IMPRESSION: Reverse curvature apex at C5 with a mild [place] deformity. Multilevel cervical spondylosis resulting in grade 1 retrolisthesis C5-6 without cord compression, cord edema and or myelopathy. Left neuroforamina narrowing C4-5 and bilateral neuroforamina narrowing C5-6 on a degenerative basis. Intraosseous hemangioma, C7. Electronically signed by: Aroldo Bledsoe MD 01/04/2025 08:01 AM EDT RP MRI C-spine 2024: C5-6 disc disease Assessment & Plan Assessment & Plan (1) Tension headache: Code(s): G44.209 - Tension-type headache, unspecified, not intractable Category: Medical (2) Cervical disc disease: Code(s): M50.90 - Cervical disc disorder, unspecified, unspecified cervical region Category: Medical Plan: No significant neck pain or stiffness, and meloxicam was stopped. (3) Cervical radiculopathy: Code(s): M54.12 - Radiculopathy, cervical region Category: Medical Plan: NCV/EMG UE ordered. Plan Meds tried: cyclobenzaprine (drowsy), amitriptyline Orders: Orders NE electromyogram (EMG) Today M54.12 - Radiculopathy, cervical region NE nerve conduction velocity Today M54.12 - Radiculopathy, cervical region Medications: Discontinued meloxicam Discontinued Reason: Doctor's Order 15 mg PO DAILY 30 days 30 tabs 2RF Coding Level of Care Code Est Pt Level 4 (58157) Diagnoses Tension headache G44.209 Cervical disc disease M50.90 Cervical radiculopathy M54.12
--- OUTSIDE RECORDS SUMMARY | 2025-06-06 18:14 | XMS_ITS | Data Portability ---
Author Organization [place] [facility], Allergy Address [address] [place] [id number] Assessment Encounter Date Assessment Date Assessment LastModified [...] Organization Details Recorded Time Abnormal auditory perception [id number] Active 2023 Merary sherman [facility] 11:10:52 Bilateral disorder of Eustachian tubes [id number] 107 Active 2023 JOY DOWLING PA-C [address] [place] [address], [phone], [facility] 12:31:15 Tinnitus of left ear [id number] Active 2023 JOY DOWLING PA-C [address] [place] [address], [phone], [facility] 12:31:24 Problem Notes None recorded. Procedures Surgical History Date Name Laterality Status Provider Name and Address Organization Details Recorded Time 04/17/2024 Comp Audio with Tymps - 21019 & 68132 completed Merary Heredia [place] [facility] 04/17/2024 11:10:39 Imaging Results None recorded. Procedure Notes None recorded. Medical Equipment None Reported. Vitals Date Recorded Body height Body mass index (BMI) Body weight Provider Name and Address Organization Details Last Updated DateTime 04/17/2024 149.86 cm 37 kg/m2 90582.4 g Maryopp Daniel [facility] 04/17/2024 11:16:54 Social History None recorded. Functional Status None recorded. Mental Status None recorded. Family History Nothing Reported. Medical History No medical history recorded. Gynecological HistoryNo gynecological history recorded. Obstetrics History GPAL:G 0 P 0 0 0 0 Past Encounters Encounter ID Performer Location Encounter Start Date Encounter Closed Date Diagnosis/Indication Diagnosis SNOMED-CT Code Diagnosis ICD10 Code Diagnosis IMO Codes Diagnosis Note [id number] ANA CALI PA-C [facility] [address] [place] [address] 04/17/2024 10:38:52 04/17/2024 12:43:08 Abnormal auditory perception 21651948 H93.299 Audiologic al evaluation results: Right ear: Normal hearing with excellent word recognitio n. Left ear: Normal hearing with excellent word recognitio n. Tympanomet ry: Right Ear:Type A Left Ear:Type C Bilateral disorder of Eustachian tubes [id number] 655984 H69.93 Tinnitus of left ear 003 [id number] 106 H93.12 Health Concerns Section Related Observation LastModified by Organization Detai ls LastModified Time None Recorded Concern Status LastModified by Organization Details LastModified Time None Recorded Advance Directives Directive None Recorded Payers Insurance Date Sequence Insurance Name Policy Number Policy Perez Covered Member ID Perez Member ID Guarantor Name 05/02/2024 1 [facility] NET PLAN (MEDICAID HMO) JIMMY Sotelo [id number] Hattie Sotelo Notes Date Note Type Note Provider Name and Address Organization Details Recorded Time 04/17/2024 text/html ROS as noted in the HPI 54 year-old female with seasonal allergies presents for ear pressure, [...] caffeine or high-salt diet. EUGENE PERSAUD MD [address] [place] [address], [place], [phone], [facility] - [facility] 04/17/2024 16:34:44 OBGyn Episode No OBEpisode recorded.
== END 2025-06-06 12:33 | disposition home or self-care (01) ==
LOC: HO.HSM 12:06
PROVIDERS: PCP Internal Medicine; Visit Provider Registered Nurse
DX: G44.209 Tension-type headache, unspecified, not intractable (principal); M50.90 Cervical disc disorder, unspecified, unspecified cervical region; M54.12 Radiculopathy, cervical region
CPT/HCPCS: 99214

== ENCOUNTER → 2025-06-06 12:06 | Outpatient (BNVA) | payer OTHER, SELFPAY | PROVIDERS: PCP Internal Medicine; Visit Provider Registered Nurse | DX: G44.209 Tension-type headache, unspecified, not intractable (principal); M43.02 Spondylolysis, cervical region; M50.122 Cervical disc disorder at C5-C6 level with radiculopathy | CPT/HCPCS: 99212 ==

== ENCOUNTER 2025-07-03 09:39 | Outpatient (REF) | payer OTHER, SELFPAY ==
--- OUTSIDE RECORDS SUMMARY | 2025-07-03 11:13 | XMS_ITS | Clinical Summary ---
Author Organization [address] [place] [address] Address [address] [place] [address] Phone Care Team Providers Care Aquatics Lifeguard Name Role Phone Norah Vega MD Primary Care Provider [phone] Allergies Active Allergy Reactions Criticality Noted Date Comments Bismuth Subcit N-Pmreljinl-Tbo 10/17/2023 Pylera [bis Itvyyc-utnhebsn-ftvopkq c] Other Reaction(s): Rash/Dermatitis Codeine Hallucinations 09/30/2005 Guaifenesin Hallucinations 09/30/2005 Robitussin House Dust 11/06/2016 Other 11/06/2016 Seasonal Wheezing , sob , chest congestion , cough Medications loratadine (CLARITIN) 10 mg tablet Take 1 tablet (10 mg total) by mouth 1 (one) time each day. 90 tablet 3 12/14/2024 Active simvastatin (ZOCOR) 10 mg tablet Take 1 tablet (10 mg total) by mouth at bedtime. 90 each 02/15/2025 Active ezetimibe (ZETIA) 10 mg tablet Take 1 tablet (10 mg total) by mouth 1 (one) time each day. 90 each 04/01/2025 Active omeprazole (PriLOSEC) [address] capsule Take 1 capsule (20 mg total) by mouth 1 (one) time each day. Do not crush or chew. 90 each 3 04/16/2025 6 Active Active Problems Problem Noted Date Diagnosed Date GERD (gastroesophageal reflux disease) 5 Asthma 06/07/2024 Overview (06/07/2024): Hx in childhood. No inhaler x years Varicose veins of both lower extremities with pa in 04/23/2024 H. pylori infection 10/07/2023 Migraine 02/26/2021 Overview (06/07/2024): Dr. Robin Cervical spondylosis with radiculopathy 03/07/20 Severe obesity (BMI 35.0-39.9) with comorbidity 03/07/2020 Fibroid uterus 04/17/2019 Overview (06/07/2024): 04/16/2019 [...] Encounters Date Type Department Care Team Description 04/04/2025 2:00 PM EDT Office Visit Walk-In Clinic - [address] [phone] Telma Huang NP Left upper quadrant abdominal pain (Primary Dx); Soft tissue injury 04/04/2025 Nurse Triage Adult Medicine [address] [phone] Norah Vega MD from Last 3 Months Immunizations Immunization Administration Dates Next Due Hepatitis B ([place] , Recombivax HB-Adult) 19yo and older 03/17/2001 [...] with comorbidity (CMS/HCC V24, CMS/HCC V28) 03/07/2020 GERD (gastroesophageal reflux disease) Depression Family History Medical History Relation Name [...] for your loved ones. For example, child care provider or elderly care for an older adult? [...] Date Recorded What is your living situation? Unrecognized valu e 10/15/2024 Interpersonal Safety Answer Date Record ed Physical Abuse Unrecognized value 12/28/2024 Verbal Abuse Unrecognized value 12/28/2024 Comments No Sex and Gender Information [...] Sign Reading Time Taken Comments Blood Pressure 127/81 04/04/2025 1:57 PM EDT Pulse 77 04/04/2025 1:57 PM EDT Temperature 36.5 C (97.7 F) 04/04/2025 1:57 PM EDT Respiratory Rate 16 01/28/2025 1:55 PM EDT Oxygen Saturation 98% 04/04/2025 1:57 PM EDT Inhaled Oxygen Concentration - - Weight 80.6 kg (177 lb 12.8 oz) 025 10:26 AM EDT Height 149.9 cm (4' 11 ) 03/27/2025 10: 26 AM EDT Body Mass Index 35.91 03/27/2025 10:26 AM EDT Plan of Treatment Upcoming Encounters Date Type Department Care Team (Late st Contact Info) Description 09/23/2025 10:40 AM EDT Office Visit Gastroenterology - [address] [facility] [address] [place] [phone] Altagracia Son NP [address] [facility] [address] [place] [address] 01/29/2026 10:00 AM EDT Office Visit Vascular Surgery - [place] [address] [place] [phone] Liss Lazo MD [address] [place] [phone] Health Maintenance Due Date Last Done Comments Pneumococcal Vaccine: 50+ Years (1 of 2 - PCV) 02/10/1991 Hepatitis B Vaccines (2 of 3 - 19+ 3-dose series) 04/14/2001 03/17/2001 RSV Immunization Adult Patients (1 - Risk 50-74 years 1-dose series) 02/10/2022 HIV Screening 06/26/2022 COVID-19 Vaccine ( season) 2025 12/16/2020, 11/18/2020 Influenza Vaccine (#1) 2025 Social Influencers of Health Screening 10/15/2025 10/15/2024 Cervical Cancer Screening: HPV 01/02/2026 01/02/2021 Breast Cancer Screening 03/21/2027 03/21/20, 02/23/2025, 2024, Additional history exists Cholesterol Screening (Lipid Panel) 04/04/2030 04/04/2025, 02/12/2025, 12/14/2024, Additional history exists Colorectal Cancer Screening: Colonoscopy [...] Procedure Name Priority Date/Time Associated Diagnosis Comments LIPID PANEL WITH REFLEX TO DIRECT LDL Routine 04/04/2025 11:42 AM EDT Mixed hyperlipidemia HEPATIC FUNCTION PANEL Routine 04/04/2025 11:42 AM EDT Mixed hyperlipidemia MG MAMMO DIGITAL DIAGNOSTIC W TREMAINE RIGHT Routine 03/21/2025 10:14 AM EDT Abnormal mammogram DEPRESSION SCREENING Routine 04/23/2024 COLONOSCOPY Routine 01/27/2024 HPV Routine 01/02/2021 HEPATITIS C SCREENING Routine 03/15/2001 from Last 3 Months or Most Recently Relevant to Health Maintenance Results * Lipid panel with reflex to direct LDL (04/04/2025 11:42 AM EDT) Cholesterol 172 0 - 200 mg/dL LAB CHEMISTRY METHOD 04/04/2025 2:44 PM EDT [facility] Triglycerides 131 0 - 150 mg/dL LAB CHEMISTRY METHOD 04/04/2025 2:44 PM EDT [facility] HDL 55 >=40 mg/dL LAB CHEMISTRY METHOD 04/04[facility]25 [facility] LDL Calculated 91 0 - 100 mg/dL LAB CHEMISTRY METHOD 04/04/2025 2:44 PM T [facility] Comment:Estimated LDL Calcul ated using equation: Total cholesterol - HDL cholesterol - (Triglycerides/5) VLDL Cholesterol Miky 26.2 mg/dL LAB CHEMISTRY METHOD 04/04/2025 2:44 PM EDT [facility] Non HDL Chol. (LDL+VLDL) 117 <145 mg/dL LAB CHEMISTRY METHOD 04/04/2025 2:44 [facility] Chol/HDL Ratio 3.1 0.0 - 4.4 LAB CHEMISTRY METHOD 04/04/2025 2:44 PM [facility] Blood Venous blood specimen / Unknown Venipuncture / Unknown 04/04/2025 11:42 AM EDT 04/04/2025 11:42 AM EDT us Celeste MARQUEZ LAB BLOOD ORDERABLES Final Resul t [facility] [address] [place] [address], [place] [phone] * Hepatic function panel (04/04/2025 11:42 AM EDT) Total Protein 7.9 6.0 - 8.0 g/dL LAB CHEMISTRY METHOD 04/04/2025 2:44 PM EDT [facility] Albumin 3.8 3.2 - 5.0 g/dL LAB CHEMISTRY METHOD 04/04/2025 2:44 PM EDT [facility] Total Bilirubin 0.8 0.0 - 1.4 mg/dL LAB CHEMISTRY METHOD 04/04/2025 2:44 PM EDT [facility] Bilirubin, Direct 0.2 0.0 - 0.3 mg/dL LAB CHEMISTRY METHOD 04/04/2025 2:44 PM EDT [facility] Bilirubin, Indirect 0.6 0.0 - 1.1 mg/dL LAB CHEMISTRY METHOD 04/04/2025 2:44 PM EDT [facility] ALT (SGPT) 29 10 - 60 unit/L LAB CHEMISTRY METHOD 04/04/2025 2:44 PM T [facility] AST (SGOT) 21 10 - 42 unit/L LAB CHEMISTRY METHOD 04/04/2025 2:44 PM EDT [facility] Alkaline Phosphatase 95 42 - 121 unit/L LAB CHEMISTRY METHOD 04/04/2025 2:44 PM EDT [facility] Blood Venous blood specimen / Unknown Venipuncture / Unknown 04/04/2025 11:42 AM EDT 04/04/2025 11:42 AM EDT us Celeste MARQUEZ LAB BLOOD ORDERABLES Final Resul t [facility] [address] [place] [address], [place] [phone] * MG Mammo Digital Diagnostic w Tremaine Right (03/21/2025 10:14 AM EDT) Anatomical Region Laterality Modality Breast Right Mammography 03/21/2025 10:1 8 AM EDT Impressions 03/21/2025 10:44 AM EDT 1. No mammographic evidence of malignancy or sonographic evidence of malignancy 2. Scattered fibroglandular tissue Findings and recommendations were conveyed to the patient. BI-RADS CATEGORY: 2 - BENIGN RECOMMENDATION: Return to annual mammography. Return to annual mammography. Mammo Location: [facility], [address] [place] [address], [id number], . -------- FINAL REPORT -------- Dictated By: Ken Chen Dictated Date: 03/21/2025 10:18 ET Assigned Physician: Ken Chen Reviewed and Electronically Signed By: Ken Chen Signed Date: 03/21/2025 10:44 ET Workstation ID: [id number] Transcribed By: Self Edit Transcribed Date: 03/21/2025 10:30 ET Narrative 03/21/2025 10:44 AM EDT RIGHTDIGITAL DIAGNOSTIC 3D MAMMOGRAPHY HISTORY: Workup for upper outer middle depth focal asymmetry COMPARISON: Mammogram from 02/23/2025 Technique: CC and MLO spot compression views, full-field ML 3-D FINDINGS: Right breast upper outer middle depth focal asymmetry becomes equal in density on spot compression and is consistent with benign summation of fibroglandular tissue. Sonographic evaluation demonstrates no focal abnormality BREAST DENSITY: B - There are scattered areas of fibroglandular density. EXAM: RIGHT BREAST TARGETED ULTRASOUND EVALUATION TECHNIQUE: Ultrasonographic examination is performed using a linear array transducer. Targeted right breast ultrasound from 9:00 to 12:00 to evaluate mammographic finding. Real-time sonographic scanning was also performed by the radiologist FINDINGS: From 9:00 to 12:00, no sonographic evidence of malignancy or other focal abnormalities were identified at the right breast in area of mammographic concern Procedure Note Ken Chen MD - 03/21/2025 RIGHTDIGITAL DIAGNOSTIC 3D MAMMOGRAPHY HISTORY: Workup for upper outer middle depth focal asymmetry COMPARISON: Mammogram from 02/23/2025 Technique: CC and MLO spot compression views, full-field ML 3-D FINDINGS: Right breast upper outer middle depth focal asymmetry becomes equal indensity on spot compression and is consistent with benign summation offibroglandular tissue. Sonographic evaluation demonstrates no focalabnormality BREAST DENSITY: B - There are scattered areas of fibroglandular density. EXAM: RIGHT BREAST TARGETED ULTRASOUND EVALUATION TECHNIQUE: Ultrasonographic examination is performed using a linear arraytransducer. Targeted right breast ultrasound from 9:00 to 12:00 toevaluate mammographic finding. Real-time sonographic scanning was alsoperformed by the radiologist FINDINGS: From 9:00 to 12:00, no sonographic evidence of malignancy or other focalabnormalities were identified at the right breast in area of mammographicconcern IMPRESSION: 1. No mammographic evidence of malignancy or sonographic evidence ofmalignancy 2. Scattered fibroglandular tissue Findings and recommendations were conveyed to the patient. BI-RADS CATEGORY: 2 - BENIGN RECOMMENDATION: Return to annual mammography. Return to annual mammography. Mammo Location: [facility], [address] [place] [address], [id number], . -------- FINAL REPORT -------- Dictated By: Ken Chen Dictated Date: 03/21/2025 10:18 ET Assigned Physician: Ken Chen Reviewed and Electronically Signed By: Ken Chen Signed Date: 03/21/2025 10:44 ET Workstation ID: [id number] Transcribed By: Self Edit Transcribed Date: 03/21/2025 10:30 ET us oNrah Vega MD IMG BI PROCEDURES Final Result * Depression Screening (04/23/2024) Depression Screening Abstracted us Historical Provider HEALTH MAINTENANCE Final Result * Colonoscopy (01/27/2024) Colonoscopy No Interpretation , Abstracted Anatomical Region Laterality Modality Other Historical Provider HEALTH MAINTENANCE Final Result * Cervical Cancer Screening: HPV (01/02/2021) Cervical Cancer Screening: HPV Negative, Abstracted [facility] Provider HEALTH MAINTENANCE Final Result * Hepatitis C Screening (03/15/2001) Hepatitis C Screening Abstracted [facility] Provider HEALTH MAINTENANCE Final Result from Last 3 Months or Most Recently Relevant to Health Maintenance Insurance [facility] [employer] Care Teams Aquatics Lifeguard Relationship Specialty Start Date End Date Norah Vega MD [address] [place] [address] PCP - General Internal Medicine 01/22/20
--- NOTE | 2025-07-03 14:38 | EMG_ITS ---
Chief complaint: Pain in arms Left > right mainly while sleeping Referred by: Donna Wilson CNP Procedure done: NCS and EMG of bilateral upper extremities Bilateral median and ulnar motor studies were performed with F responses. Bilateral median and ulnar mixed sensory studies, radial sensory studies, and median and lateral antecubital brachial sensory studies were performed and needle examination was performed. Findings: Motor studies did not reveal any significant abnormality. Left median mixed distal latencies was borderline prolonged. Otherwise no significant abnormality noted. 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 Otherwise no significant abnormality noted. [place] [id number] x2 MTDD
== END 2025-07-03 09:40 ==
LOC: HO.NEURO 09:39
PROVIDERS: PCP Internal Medicine; Visit Provider Registered Nurse
DX: M54.12 Radiculopathy, cervical region (principal); M79.601 Pain in right arm; M79.602 Pain in left arm
CPT/HCPCS: 95886; 95913

== ENCOUNTER → 2025-07-03 14:38 | Outpatient (BNV) | payer OTHER, SELFPAY | PROVIDERS: PCP Internal Medicine; Visit Provider Psychiatry & Neurology Neurology | DX: G56.02 Carpal tunnel syndrome, left upper limb (principal); M54.12 Radiculopathy, cervical region | CPT/HCPCS: 95886; 95913 ==